=== PATIENT | male | born 1975 ===

== ENCOUNTER → 2020-11-25 | Outpatient (CLI) | payer OTHER ==
--- NOTE | 2020-11-25 17:48 | CONS ---
CONSULTATION DATE OF SERVICE: 11/25/2020. 45-year-old gentleman has been evaluated in Sleep Center for obstructive sleep apnea- hypopnea syndrome. HISTORY OF PRESENT ILLNESS/SLEEP WAKE EVALUATION: The patient has a history of obstructive sleep apnea diagnosed about 7 years ago. He was on treatment with CPAP for the short time, but then because of insurance problems. He quit therapy about 5 years ago. Repeated sleep study about 2 years ago in another institution, showed sleep apnea, but again because of the insurance issue, the patient was not able to get CPAP there. SLEEP SCHEDULE: Presently, his sleep schedule from 9 p.m. until 5 a.m. on weekdays and from 10 p.m. to 7 or 8 a.m. on weekends. FALLING ASLEEP: No problems with falling asleep. No TV in bedroom. DURING SLEEP: He sleeps in different positions usually. According to his , he snores and awakenings from sleep with choking once and with one episode of nocturia at night. No history of hypnagogic hallucinations, sleep paralysis or cataplexy. DURING THE DAY/SLEEP WAKE EVALUATION: In the morning, the patient wakes up tired, falling asleep during the day. Has problem with memory. [place] Sleepiness Scale is 5. PAST MEDICAL HISTORY: Positive for hypertension, diabetes mellitus. PAST SURGICAL HISTORY: Surgery for thoracic outlet syndrome. MEDICATIONS: Metformin, lisinopril. Patient will submit us the list of his medication and doses. FAMILY HISTORY: Hypertension, stroke, epilepsy, diabetes, crib . PHYSICAL EXAMINATION: GENERAL: A 45-year-old gentleman without distress. BP 123/73, HR 68, RR 15, height 5 feet and 6 inches, weight 242 pounds. Body mass index 39, temperature 98.3. HEENT: PERRLA, EOMI. Evaluation of oropharynx showed tongue protrudes midline. Extremely low position of soft palate. Mallampati IV. NECK: 17 inches in circumference. Neck: Supple, no JVD. Thyroid is not palpable. LUNGS: Clear to percussion and to auscultation. Good air exchange. No wheezing or rhonchi. HEART: S1, S2 regular. No murmurs, gallops, or rubs. ABDOMEN: Soft and nontender. Bowel sounds are present. No organomegaly appreciated. EXTREMITIES: No clubbing or cyanosis. COURT BAILIFF: Awake, alert, and oriented X3. Cranial nerves 2 to 7 intact. There is no fasciculation or atrophy. noted. No focal deficits observed. IMPRESSION: 1. Snoring, awakenings from sleep with the choking, history of obstructive sleep apnea- hypopnea syndrome, extremely low position of soft palate, Mallampati IV, wide neck, 17 inches in circumference, obstructive sleep apnea-hypopnea syndrome. 2. Obesity, BMI 39.0. 3. Hypertension. 4. Diabetes mellitus. 5. Status post surgical treatment of thoracic outlet syndrome. PLAN: 1. Home sleep apnea test for checking patient breathing during sleep. 2. CPAP/BiPAP titration if sleep study confirms obstructive sleep apnea-hypopnea syndrome. 3. Preferable position during sleep on the side. 4. No driving if patient feels any sleepiness. 5. I will see patient for follow up visit to explain results of testing and following plan. Thank you very much for referring this patient for consultation. Sincerely, Abundio Rashid MD, PhD, FAASM Diplomat of [employer] Sleep Medicine Board of [employer] Teletray Operator of [facility] [place] MMODL / IJN: [id number] /
== END | disposition home or self-care (01) ==
CPT/HCPCS: 99202

== ENCOUNTER → 2021-03-23 | Outpatient (CLI) | payer OTHER ==
--- NOTE | 2021-03-24 08:02 | SFUN ---
SLEEP CENTER FOLLOW UP NOTE DATE OF SERVICE: 03/23/2021 This 45-year-old gentleman has been followed in Sleep Center for treatment of obstructive sleep apnea-hypopnea syndrome. Recently the patient had a home sleep apnea test which showed the patient has obstructive sleep apnea-hypopnea syndrome. I discussed results of the sleep study with the patient in detail. Today is his first visit after he was started on treatment with CPAP, and he feels better with the machine, sleeps better, and again feels better during the day. [place] Sleepiness Scale today is 9. I checked his CPAP unit. Range of the pressure is 5 to 18, with average pressure 9.7. Usage for the first month of usage is 90% of the nights for more than 4 hours with average usage 5 hours 40 minutes. Apnea-hypopnea index reading is 2.7, which is totally normal. Leak is 14.4 L/minute, which is acceptable. For the second month of usage of CPAP, the patient's usage decreased to about 50% of nights for more than 4 hours per night. CURRENT MEDICATIONS: Lisinopril. PHYSICAL EXAMINATION: GENERAL: Pleasant patient in no distress. VITAL SIGNS: BP 146/90, HR 68, RR 15, weight 242, temperature 98.2, oxygen saturation at room air 99%. HEENT: PERRLA, EOMI, evaluation of oropharynx showed tongue protrudes midline. Extremely low position of soft palate; Mallampati IV. NECK: Supple, no JVD. Thyroid is not palpable. LUNGS: Clear to percussion and to auscultation. Good air exchange. No wheezing or rhonchi. HEART: S1, S2 regular. No murmurs, gallops, or rubs. ABDOMEN: Soft and nontender. Bowel sounds are present. No organomegaly appreciated. EXTREMITIES: No clubbing or cyanosis. LIP CUTTER: Awake, alert, and oriented X3. Cranial nerves 2 to 7 intact. There is no fasciculation or atrophy. noted. No focal deficits observed. IMPRESSION: 1. Moderate obstructive sleep apnea-hypopnea syndrome; apnea-hypopnea index 25.3 with oxygen desaturation to 78%. Patient demonstrated borderline compliance with treatment, benefitting from treatment. 2. Obesity. 3. Hypertension. 4. Diabetes mellitus. 5. Status post surgical treatment of thoracic outlet syndrome. PLAN: 1. Patient will continue to use PAP equipment every night for the whole night. 2. Sleep hygiene with regular time in bed for at least 7-1/2 to 8 hours. 3. Precautions related to driving. No driving if feeling sleepiness. 4. I will maintain all necessary prescription for PAP supplies including mask, tube, filters. 5. Watching weight. 6. Follow-up visit in 6 months or earlier if patient has any problems. 1. I discussed with the patient the position of the machine during sleep; also the necessity to empty the water chamber in the morning and let it dry, and put in a new portion of distilled water in the evening. Thank you very much for allowing me to participate in the management of your patient. Sincerely, Abundio Rashid MD, PhD, FAASM Diplomat of [employer] Sleep Medicine Board of [employer] Medicine [employer] Parer of [facility] [place] IVONNE / NEGAR: [id number] /
== END | disposition home or self-care (01) ==
LOC: SLEEP 11:18
PROVIDERS: ATTEND Internal Medicine
DX: G47.33 Obstructive sleep apnea (adult) (pediatric) (principal); E66.9 Obesity, unspecified; I10 Essential (primary) hypertension; E11.9 Type 2 diabetes mellitus without complications; Z98.890 Other specified postprocedural states

== ENCOUNTER → 2022-05-01 | Outpatient (CLI) | payer OTHER | END | disposition home or self-care (01) | LOC: LABWHC1 09:44 | PROVIDERS: ATTEND Physician Assistant | DX: I10 Essential (primary) hypertension (principal) | CPT/HCPCS: 36415; 82088; 82533; 84244 ==

== ENCOUNTER → 2022-07-17 | Outpatient (CLI) | payer OTHER ==
--- NOTE | 2022-07-17 12:43 | CA ---
Exercise Stress Test Report Name: Doyle Allan Exam Date: 07/17/2022 09:07 Exam Location: [facility] Stress Ht (in): 66 Wt (lb): 250 BSA: 2.20 Ordering Phys: Lolis Fields DO Referring Phys: Lolis Fields DO Technologist: Dc Sanderson Age: 47 Gender: M : 1975 Procedure CPT: Indications: R07.9 I95.9 ICD-10 Codes: Patient History: Chest pain Medications: Meds past 24 hrs: Pretest Chest Pain: STRESS TEST Evan Protocol Exercise Duration (min:sec): 08:[address] Depressions (mm): 0 Angina Score: 0 Stacy Score: 8.98 Resting HR (bpm): 95 Peak HR (bpm): 155 Resting BP (mmHg): 131 / 89 Peak BP (mmHg): 173 / 81 MPHR: 172 Target HR: 146 % MPHR: 90 METS: 10.3 Total Dose: Peak Dose: Atropine: Double Product: 37643 BP Response: Normal Resting Blood Pressure - Appropriate Stress Termination: TARGET HR REACHED/MAX EXERTION Stress Symptoms: NO SYMPTOMS Stress Summary: The patient's target heart rate was achieved ECG ANALYSIS Resting ECG: Sinus rhythm. Normal conduction. No arrhythmias. Normal repolarization. Stress ECG: No ECG evidence of ischemia with exercise. CONCLUSIONS Patient falls into low-risk group (DTS >= +5). This associates the patient with an annual CV mortality <= 0.5%. Normal ST segment response to stress. No chest discomfort with stress test. Normal left electrocardiographic stress test with no evidence of stress induced ischemia Dr. Josselyn Maher MD (Electronically Signed) Final Date: 17 July 2022 12:42
== END | disposition home or self-care (01) ==
LOC: RADNMMAIN 08:42
PROVIDERS: ATTEND Family Medicine
DX: R07.9 Chest pain, unspecified (principal); I95.9 Hypotension, unspecified
CPT/HCPCS: 93017

== ENCOUNTER → 2023-07-19 | Outpatient (CLI) | payer BC ==
[2023-07-19 15:09] VITALS: BP 115/73; PULSE 84; RESP 16; TEMP 98.3
--- NOTE | 2023-07-19 15:20 | P.PN ---
Subjective DATE: 07/19/2023 FOLLOW UP VISIT. Patient with obstructive sleep apnea hypopnea syndrome return to sleep center for follow-up visit. Information from previous visit have been reviewed. Patient cannot use CPAP equipment every night because some of the nights he developed water in the mask. [place] sleepiness scale is, which is normal8. I checked information from PAP unit. Temperature in the heated tube is 60 degree, which is very low, humidifier use off. PAP unit pressure 5-18, average 7.8 cm H2O. Usage is 50% for more then 4 hours, average 4 hours per night. Leak is 3.4 l/m, which is in acceptable range. Apnea Hypopnea Index is 0.9, which is normal. MEDICATIONS:1. Metformin 850 mg 3 times a day 2. Manjorno 750 units once a week 3. Toujro 60 units every day During physical exam: GENERAL: A pleasant patient without any distress. VITAL SIGNS: Please see below. HEENT: PERRLA, EOMI.low position of soft palate, Mallapati 3 NECK: Supple. No JVD. LUNGS: Clear to percussion and to auscultation. Good air exchange. No wheezing or rhonchi. HEART: S1, S2 regular. ABDOMEN: Soft and nontender.[] EXTREMITIES: No clubbing or cyanosis. IMPLEMENTATION ANALYST: Awake, alert, and oriented x3. No focal deficit. I teach patient how to adjust humidity and temperature in the tube. Temperature in the tube was increased to 80 degree from 60 degree to prevent condensation of water in the tube. Impressions: 1. Obstructive sleep apnea-hypopnea syndrome. Patient demonstrated borderline compliance with treatment, benefiting from treatment. Patient had problems related to humidity adjustments in CPAP unit. 2. Obesity, present body mass index 39.9, weight is about the same as during previous visit. 3. Hypertension. 4. Diabetes mellitus. 5. Status post surgical treatment for thoracic outlet syndrome. Plan: 1. Continue using PAP equipment every night for the whole night. 2. To change air filter at least 1-2 times per month. 3. PAP unit should stay lower then position of the head. 4. Advised patient to remove all remaining water from humidifier canister daily and make it dry after each usage. Refill canister with fresh distilled water before each usage. 5. Sleep hygiene with regular time in bed for at least 8 hours. 6. Precautions related to driving. No driving if feel any sleepiness. 7. I will maintain prescription for PAP supplies including mask, tube, filters. 8. Follow up visit in 6 months or earlier if patient has any problems. 9. Watching weight. Thank you very much for allowing me to participate in the management of your patient. Abundio Rashid MD, PhD, FAASM. Diplomat of [employer] [employer] Medicine, Sleep Medicine Board by [employer] Medicine Chief Accountant of [facility] [place] Objective - Vital Signs Vital signs: Vital Signs Temp 98.3 F 07/19/23 14:51 Pulse 84 07/19/23 14:51 Resp 16 07/19/23 14:51 BP 115/73 07/19/23 14:51 Pulse Ox 98 07/19/23 14:51 FiO2 Intake & Output 07/18/23 07/19/23 07/19/23 18:59 06:59 18:59 Weight 111.13 kg
--- NOTE | 2023-07-19 16:05 | P.SLEEP ---
History of Present Illness DATE: 07/19/2023 CONSULTATION/NEW PATIENT EVALUATION HISTORY OF PRESENT ILLNESS/SLEEP-WAKE EVALUATION: 72-year-old lady had been e valuated in the sleep center for obstructive sleep apnea hypopnea syndrome. Patient has history of obstructive sleep apnea for many years. Last time I saw the patient in our office in 2015. Since that time patient continued to use your CPAP equipment every night for the whole night. I checked your CPAP unit. Pressure is 10 cm of water. Usage is 100% of nights. Average usage is 12.5 hours per night. Leak is 14 L/min which is acceptable. Apnea hypopnea index is 1.2 which is normal. CPAP unit is old. Motor life expectancy was exceeded. SLEEP SCHEDULE: Patient sleeps for 5-8 hours average. No exact sleep schedule. FALLING ASLEEP: No problems with falling asleep. DURING SLEEP: No snoring while using your CPAP. Wakes up from sleep once to use the restroom. No history of hypnogogical hallucinations, sleep paralysis, or cataplexy. DURING THE DAY/WAKE STATE: In the morning patient may feel some sleepiness. Positive history of memory problems and anxiety. [place] sleepiness scale is 0. Patient takes 1 nap at 4 PM. PAST MEDICAL HISTORY: Hypertension, diabetes, history of depression, history of anxiety, degenerative joint disease, hyperlipidemia, history of rheumatic fever in childhood. PAST SURGICAL HISTORY: Cholecystectomy, appendectomy, tonsillectomy. MEDICATIONS: Glimepiride 4 mg 2 tablets once a day, amlodipine 10 mg once a day, valsartan 160 mg once a day, atenololchlorthalidone 100-20 mg once a day, atorvastatin 40 mg once a day, methylphenidate 20 mg 3 times a day, fluoxetine 20 mg once a day, furosemide 20 mg. SOCIAL HISTORY: See below. FAMILY HISTORY: Stroke, cancer, thyroid problems. REVIEW OF SYSTEMS: Occasional awakenings from sleep and sleepiness. No fevers. No double vision. No recent chest pain. No shortness of breath. No abdominal pain. No bleeding episodes. No blood in urine. No seizure episodes. PHYSICAL EXAMINATION: GENERAL: A pleasant patient without any distress. VITAL SIGNS: See below, body mass index 39. HEENT: PERRLA, EOMI. Evaluation of oropharynx showed tongue protrudes midline, low position of soft palate Mallampati 4. NECK: Supple. No JVD. Thyroid is not palpable. 17.5 inches in circumference. LUNGS: Clear to percussion and to auscultation. Good air exchange. No wheezing or rhonchi. HEART: S1, S2 regular. No murmurs, gallops or rubs. ABDOMEN: Soft and nontender. Bowel sounds are present. No organomegaly appreciated. EXTREMITIES: No clubbing or cyanosis. DINING CAR CONDUCTOR: Awake, alert, and oriented x3. Cranial nerves 2 to 7 intact. There is no fasciculation or atrophy noted. No focal deficits observed. ASSESSMENT: 1. Obstructive sleep apnea hypopnea syndrome for more than 10 years. Patient demonstrated great compliance with CPAP treatment. Normal respiration on CPAP at the pressure of 10 cm of water. Wide neck 17.5 inches in circumference, extremely low position of soft palate Mallampati 4. CPAP unit is old, motor life expectancy exceeded, CPAP unit is noisy. 2. Obesity, BMI 39. 3. Hypertension. 4. Diabetes mellitus. 5 hyperlipidemia. 6 . History of depression. 7. Status post spinal surgery. 8. History of rheumatic fever in childhood. 9 . Status post cholecystectomy. 10. Status post appendectomy. 11. Status post tonsillectomy. PLAN: 1. Prescription to replace CPAP unit, prescription for all necessary CPAP supplies. 2. Follow-up visit in 30 to 90 days after patient will get new CPAP unit to evaluate clinical response to treatment, compliance with treatment and make any suggestions. 3. Preferable position during sleep on the side. 4. No driving if patient feels any sleepiness. Patient is aware of civil and criminal liability for unsafe driving. 5. Sleep hygiene with regular sleep time for at least 7.5-8 hours. 6. Watching and losing weight. Thank you very much for referring this patient for consultation. Sincerely, Abundio Rashid MD, PhD, FAASM. Diplomat of [employer] Board of Sleep Medicine, Sleep Medicine Board by [employer] Board of Internal Medicine Manager Market [facility] [place] Physical Exam Vitals: Vital Signs Temp Pulse Resp BP Pulse Ox 07/19/23 14:51 98.3 F 84 16 115/73 98 Intake and Output 07/19/23 07/19/23 07/19/23 06:59 14:59 22:59 Other: Weight 111.13 kg Sleep Note - Sleep Data ESS Total: 8 - Sleep Note Sleep Note: Temperature: 98.3 F Pulse Rate: 84 Respiratory Rate: 16 Blood Pressure: 115/73 SpO2: 98 Height: 5 ft 5.7 in Weight: 111.13 kg BMI: Neck Circumference:
== END ==
LOC: 3 N SLEEP 14:06
PROVIDERS: ATTEND Internal Medicine
DX: G47.33 Obstructive sleep apnea (adult) (pediatric) (principal); E66.9 Obesity, unspecified; I10 Essential (primary) hypertension; E11.9 Type 2 diabetes mellitus without complications; E78.5 Hyperlipidemia, unspecified; F41.9 Anxiety disorder, unspecified; F32.A Depression, unspecified; G54.0 Brachial plexus disorders; Z98.890 Other specified postprocedural states; Z90.49 Acquired absence of other specified parts of digestive tract; Z90.89 Acquired absence of other organs; Z86.19 Personal history of other infectious and parasitic diseases; Z68.39 Body mass index [BMI] 39.0-39.9, adult; Z79.84 Long term (current) use of oral hypoglycemic drugs; Z79.899 Other long term (current) drug therapy; Z79.85 Long-term (current) use of injectable non-insulin antidiabetic drugs; Z99.89 Dependence on other enabling machines and devices
CPT/HCPCS: 99212

== ENCOUNTER → 2024-01-28 | Outpatient (CLI) | payer BC ==
--- NOTE | 2024-01-28 07:42 | MM ---
Reason for Exam: Clinical finding. Baseline mammogram. Prior Study Comparison: Patient's first Mammogram. Tissue Density: There are scattered areas of fibroglandular density. Findings: Analyzed By CAD. Sided the retroareolar increased density likely reflective of gynecomastia. Ultrasound is recommended. Right breast is a normal appearance. No masses or suspicious microcalcifications identified. Overall Assessment: Incomplete: need additional imaging evaluation, BI-RAD 0 Management: Diagnostic Breast Ultrasound of the left breast. . Results were given to the patient verbally at the time of exam. Patient should continue monthly self-breast exams. A clinical breast exam by your physician is recommended on an annual basis. This exam should not preclude additional follow-up of suspicious palpable abnormalities. Note on Marii scores and lifetime risk: 1. A Marii score greater than 3% is considered moderate risk. If this is the case, consider specialist referral to assess eligibility for a risk reducing agent. 2. If overall lifetime risk for the development of breast cancer is 20% or higher, the patient may qualify for future screening with alternating mammogram and breast MRI. [facility], , 01/28/2024 7:39 AM. Electronically signed and approved by: Michael Valiente M.D. Radiologis
--- NOTE | 2024-01-28 13:29 | USB ---
Reason for Exam: Clinical finding. Technique: Method: Whole Breast Handheld. Findings: The whole breast of the left breast, the axilla of the left breast and the retroareolar of the left breast were scanned. Flame-shaped retroareolar density in the left compatible with gynecomastia. Correlate clinically.. Overall Assessment: Benign, BI-RAD 2 Management: Clinical Management of both breasts. A clinical breast exam by your physician is recommended on an annual basis and results should be correlated with mammographic findings. This exam should not preclude additional follow-up of suspicious palpable abnormalities. Results were given to the patient verbally at the time of exam. [facility], , 01/28/2024 7:57 AM . Electronically signed and approved by: Michael Valiente M.D. Radiologis
== END | disposition home or self-care (01) ==
LOC: RADMAMWWP 06:54
PROVIDERS: ATTEND Family Medicine
DX: N64.4 Mastodynia
CPT/HCPCS: 77062; 77066

== ENCOUNTER → 2024-02-27 | Outpatient (CLI) | payer BC ==
[2024-02-27 17:16] VITALS: BP 100/66; PULSE 92; RESP 16; TEMP 98.6
--- NOTE | 2024-02-27 18:18 | P.PROGSL ---
Subjective DATE: 02/27/2024 FOLLOW UP VISIT. Patient with obstructive sleep apnea hypopnea syndrome return to sleep center for follow-up visit. Information from previous visit have been reviewed. Patient is using PAP equipment but not every night . The patient does not have significant problems with the mask, PAP unit and humidification. [place] sleepiness scale is increased to 12. I checked information from PAP unit. PAP unit pressure 5-12, average 8.4 cm H2O. Usage is about 50% for more then 4 hours, average 4.6 hours per night. Leak is 4 l/m, which is in acceptable range. Apnea Hypopnea Index is 2.1, which is normal. MEDICATIONS: Losartan 100 mg twice a day, amlodipine 10 mg once a day, spironolactone 50 mg once a day, metformin 850 mg 3 times a day, metoprolol 100 mg twice a day During physical exam: GENERAL: A pleasant patient without any distress. VITAL SIGNS: Please see below, weight is 252 lbs. HEENT: PERRLA, EOMI.low position of soft palate, Mallapati 3. NECK: Supple. No JVD. LUNGS: Clear to percussion and to auscultation. Good air exchange. No wheezing or rhonchi. HEART: S1, S2 regular. ABDOMEN: Soft and nontender.[] EXTREMITIES: No clubbing or cyanosis. PRINTING SALES REPRESENTATIVE: Awake, alert, and oriented x3. No focal deficit. Impressions: 1. Obstructive sleep apnea-hypopnea syndrome. Patient demonstrated slightly low compliance with treatment, but benefiting from treatment. 2. Obesity, BMI 40.6. 3. Diabetes mellitus. 4. Hypertension. 5. Status post surgical treatment for thoracic outlet syndrome. Plan: 1. Continue using PAP equipment every night for the whole night. 2. Sleep hygiene with regular time in bed for at least 7.5-8 hours 3. PAP unit should stay lower then position of the head. 4. Advised patient to remove all remaining water from humidifier canister daily and make it dry after each usage. Refill canister with fresh distilled water before each usage. 5. Watching weight. 6. Precautions related to driving. No driving if feel any sleepiness. 7. I will maintain prescription for PAP supplies including mask, tube, filters. 8. Follow up visit in 8 months or earlier if patient has any problems. Thank you very much for allowing me to participate in the management of your patient. Abundio Stefadu, MD, PhD, FAASM. Diplomat of [place] Board of Sleep Medicine, Sleep Medicine Board by [place] [employer] of Internal Medicine Dietary Tech of [facility] [place] cc: Batsheva Araujo DO Objective - Vital Signs Vital Signs: Vital Signs Temp 98.6 F 02/27/24 17:15 Pulse 92 02/27/24 17:15 Resp 16 02/27/24 17:15 BP 100/66 02/27/24 17:15 Pulse Ox 98 02/27/24 17:15 FiO2 Intake & Output 02/26/24 02/27/24 02/27/24 18:59 06:59 18:59 Weight 114.305 kg
== END ==
LOC: 3 N SLEEP 16:23
PROVIDERS: ATTEND Internal Medicine
CPT/HCPCS: 99212

== ENCOUNTER → 2024-03-26 | Outpatient (CLI) | payer BC ==
[2024-03-26 11:18] LABS: African American GFR (CKD) >90 (>60 ml/min/1.73 sqM); Blood Urea Nitrogen 18 mg/dL (9-20); Non-African American GFR(CKD) >90 (>60 ml/min/1.73 sqM)
--- NOTE | 2024-03-26 13:18 | CT ---
EXAMINATION TYPE: CT urogram wo/w con CT DLP: 4801.8 mGycm, Automated exposure control for dose reduction was used. DATE OF EXAM: 03/26/2024 1:10 PM COMPARISON: None CLINICAL INDICATION:Male, 48 years old with history of R31.0 GROSS HEMATURIA; PHH, gross hematuria TECHNIQUE: Urogram of the abdomen and pelvis was performed before and after the administration of 100 cc of IV c ontrast Isovue 300 contrast. Delayed imaging was performed. Coronal and sagittal reformats were perfo rmed. One or more CT dose reduction strategies were utilized during this examination. 2D and 3D recon structions are performed to assist visualization of the urinary tract on a separate workstation. FINDINGS: GENITOURINARY: RIGHT KIDNEY AND URETER: No calculi. No hydronephrosis or hydroureter. No renal mass or other lesions . No urothelial lesions: no filling defect, dilation, stricture or wall thickening. LEFT KIDNEY AND URETER: No calculi. No hydronephrosis or hydroureter. Nonenhancing right renal 6 mm c yst. No suspicious enhancing renal lesion identified. No urothelial lesions: no filling defect, dilat ion, stricture or wall thickening. URINARY BLADDER: Mildly well distended. Normal, no calculi, mass or other lesions. REPRODUCTIVE: Unremarkable. ABDOMEN LIVER: Unremarkable. GALLBLADDER AND BILE DUCTS: Unremarkable PANCREAS: Unremarkable. SPLEEN: Unremarkable. ADRENAL GLANDS: Unremarkable. STOMACH AND BOWEL: Unremarkable. No evidence of bowel obstruction. PERITONEUM: No evidence of pneumoperitoneum, free fluid, or adenopathy. VASCULATURE: No aortic aneurysm. MUSCULOSKELETAL: No acute osseous abnormalities. Degenerative changes of bilateral SI joints with lef t SI joint anterior bridging. Lower lumbar spine facet arthropathy. SOFT TISSUE/ABDOMINAL WALL: Post surgical changes from umbilical hernia repair with mesh. LOWER CHEST: No significant findings. IMPRESSION: No evidence of urolithiasis or suspicious renal/urothelial neoplasm. Subcentimeter left renal nonenha ncing cyst. [facility], , 03/26/2024 1:16 PM
== END | disposition home or self-care (01) ==
LOC: RADCTMAIN 10:25
PROVIDERS: ATTEND Urology
DX: R31.0 Gross hematuria (principal); N28.1 Cyst of kidney, acquired
CPT/HCPCS: 82565; 84520; 74178; 36415; 74400; Q9967